=== PATIENT | male | born 1970 | race Caucasian/White ===

== ENCOUNTER 2018-07-29 07:51 | Day surgery (SDC) | payer OTHER ==
[2018-07-29] MEDS ORDERED: HYDROmorphONE 1 MG/5 ML IV SYRINGE IV ×3 (10:30)
[2018-07-29] MEDS ORDERED: OXYCODONE/ACETAMINOPHEN (5/325) TAB PO (10:30)
[2018-07-29] MEDS ORDERED: DIPHENHYDRAMINE 50 MG INJ IV (10:30)
[2018-07-29] MEDS ORDERED: ONDANSETRON 4 MG INJ IV (10:30)
[2018-07-29] MEDS ORDERED: PROCHLORPERAZINE 10 MG INJ IV (10:30)
[2018-07-29] MEDS ORDERED: FENTAnyl 50 MCG/ML VIAL IV ×3 (10:30)
[2018-07-29] MEDS: POLYMYXIN/BACITRACIN 1L IRRIG IRR ×2 (10:45)
[2018-07-29] MEDS ORDERED: CEFAZOLIN 2 GM/50 ML (PMX) 50 ML IVPB (11:00)
[2018-07-29] MEDS ORDERED: SOD CHLORIDE 0.9% 1,000 ML IV (11:00)
[2018-07-29] MEDS ORDERED: MIDAZOLAM 1 MG/ML 2 ML INJ (11:01)
[2018-07-29] MEDS ORDERED: FENTAnyl 50 MCG/ML VIAL (11:02)
[2018-07-29] MEDS ORDERED: SUCCINYLCHOLINE CHLORIDE 100 MG/5 ML SYG IV (11:02)
[2018-07-29] MEDS ORDERED: ROCURONIUM 50 MG INJ (11:02)
[2018-07-29] MEDS ORDERED: PROPOFOL 20 ML (11:02)
[2018-07-29] MEDS ORDERED: ROPIVACAINE 0.5 % 30 ML VIAL (11:02)
[2018-07-29] MEDS ORDERED: LIDOCAINE 2% (SDV) 5 ML INJ (11:02)
[2018-07-29] MEDS ORDERED: ONDANSETRON 4 MG INJ (11:26)
[2018-07-29] MEDS ORDERED: DEXAMETHASONE 4 MG/ML 5 ML INJ (11:26)
[2018-07-29] MEDS ORDERED: FAMOTIDINE 20 MG INJ (11:26)
[2018-07-29] MEDS ORDERED: CEFAZOLIN 1 GM INJ (11:26)
[2018-07-29] MEDS: MEPERIDINE 25 MG INJ IV (12:11)
== END 2018-07-29 14:45 | disposition home or self-care (01) ==
LOC: SDS 07:51
DX: K43.6 Other and unspecified ventral hernia with obstruction, without gangrene (principal)
CPT/HCPCS: 49653